=== PATIENT | male | born 1950 | race Caucasian/White ===

== ENCOUNTER 2018-03-17 10:49 | Emergency (ER) | payer OTHER ==
[2018-03-17] MEDS: HYDROCODONE/APAP (10/325) TAB PO (11:27)
[2018-03-17] MEDS: IBUPROFEN 800 MG TAB PO (11:27)
[2018-03-17] MEDS: NICARDipine HCL 30 MG CAPSULE PO (14:12)
== END 2018-03-17 14:33 | disposition home or self-care (01) ==
LOC: E/R 10:49
DX: S20.211A Contusion of right front wall of thorax, initial encounter (principal); R40.2252 Coma scale, best verbal response, oriented, at arrival to emergency department; R40.2362 Coma scale, best motor response, obeys commands, at arrival to emergency department; R40.2142 Coma scale, eyes open, spontaneous, at arrival to emergency department; S40.011A Contusion of right shoulder, initial encounter; S39.012A Strain of muscle, fascia and tendon of lower back, initial encounter; E11.9 Type 2 diabetes mellitus without complications; V44.5XXA Car driver injured in collision with heavy transport vehicle or bus in traffic accident, initial encounter; Z79.4 Long term (current) use of insulin; Z85.46 Personal history of malignant neoplasm of prostate
CPT/HCPCS: 71045; 72100; 73030-RT; 99284-25